=== PATIENT | male | born 1995 | race American Indian/Alaskan Native ===

== ENCOUNTER 2016-12-31 23:14 | Emergency (ER) | payer OTHER ==
[2016-12-31 23:36] VITALS: BP 120/79
[2016-12-31 23:55] LABS: Basophils % (Auto) 0.5 % (0.0-1.8); Eosinophils % (Auto) 5.2 % (0.0-4.3); Hematocrit 44.9 % (35.5-45.6); Hemoglobin 14.7 gm/dl (11.8-15.2); Mean Corpuscular HGB Conc 33 % (32-34); Mean Corpuscular Hemoglobin 29 pg (28-32); Mean Corpuscular Volume 89 fl (84-94); Platelet Count 224 K/mm3 (140-440); Red Blood Count 5.02 M/mm3 (3.65-5.03); Red Cell Distribution Width 12.7 % (13.2-15.2)
[2017-01-01 00:07] LABS: Anion Gap 14 mmol/L; BUN/Creatinine Ratio 12.72; Blood Urea Nitrogen 14 mg/dL (9-20); Calcium 9.3 mg/dL (8.4-10.2); Carbon Dioxide 29 mmol/L (22-30); Chloride 99.7 mmol/L (98-107); Glucose 117 mg/dL (75-100); Potassium 3.8 mmol/L (3.6-5.0); Sodium 139 mmol/L (137-145)
[2017-01-01 00:45] LABS: Bilirubin,Urine NEG (Negative); Blood,Urine NEG (Negative); Ketones,Urine NEG (Negative); Leukocyte Esterase,Urine NEG (Negative); Mucus,Urine FEW /HPF; Nitrite,Urine NEG (Negative); Protein,Urine <15 mg/dL mg/dL (Negative)
--- NOTE | 2017-01-04 13:02 | ED Elopement Review ---
ED Pt Elopement review - Results review Lab results: Laboratory Tests 12/31/16 12/31/16 01/01/17 23:39 23:39 00:24 WBC 8.0 RBC 5.02 Hgb 14.7 Hct 44.9 MCV 89 MCH 29 MCHC 33 RDW 12.7 L Plt Count 224 Lymph % (Auto) 36.6 H [place] % (Auto) 6.4 Eos % (Auto) 5.2 H Baso % (Auto) 0.5 Lymph # 2.9 [place] # 0.5 Eos # 0.4 Baso # 0.0 Seg Neutrophils % 51.3 Seg Neutrophils # 4.1 Sodium 139 Potassium 3.8 Chloride 99.7 Carbon Dioxide 29 BUN 14 Creatinine 1.1 Estimated GFR > 60 BUN/Creatinine Ratio 12.72 Glucose 117 H Calcium 9.3 Urine Color Yellow Urine Turbidity Clear Urine pH 6.0 Ur Specific [place] 1.027 Urine Protein <15 mg/dl Urine Glucose (UA) Neg Urine Ketones Neg Urine Blood Neg Urine Nitrite Neg Urine Bilirubin Neg Urine Urobilinogen 4.0 Ur Leukocyte Esterase Neg Urine WBC (Auto) 1.0 Urine RBC (Auto) 2.0 U Epithel Cells (Auto) < 1.0 Urine Mucus Few - Call Back decision Pt Call Back Decision: No action required
== END 2017-01-01 11:00 | disposition left against medical advice (07) ==
LOC: ED 23:14
DX: R42 Dizziness and giddiness (principal); M79.1 Myalgia; V49.9XXA Car occupant (driver) (passenger) injured in unspecified traffic accident, initial encounter; Y93.89 Activity, other specified; Y99.9 Unspecified external cause status; Y92.410 Unspecified street and highway as the place of occurrence of the external cause; Z53.21 Procedure and treatment not carried out due to patient leaving prior to being seen by health care provider
CPT/HCPCS: 36415; 80048; 81001; 85025

== ENCOUNTER 2017-05-19 09:32 | Inpatient (IN) | payer OTHER ==
[2017-05-19 10:21] LABS: Basophils % (Auto) 0.4 % (0.0-1.8); Eosinophils % (Auto) 0.2 % (0.0-4.3); Hematocrit 44.8 % (35.5-45.6); Mean Corpuscular HGB Conc 34 % (32-34); Mean Corpuscular Hemoglobin 29 pg (28-32); Mean Corpuscular Volume 88 fl (84-94); Platelet Count 181 K/mm3 (140-440); Red Cell Distribution Width 12.9 % (13.2-15.2); White Blood Count 11.7 K/mm3 (4.5-11.0)
[2017-05-19 10:38] LABS: Anion Gap 17 mmol/L; BUN/Creatinine Ratio 8; Blood Urea Nitrogen 9 mg/dL (9-20); Calcium 9.4 mg/dL (8.4-10.2); Carbon Dioxide 26 mmol/L (22-30); Chloride 98.3 mmol/L (98-107); Glucose 143 mg/dL (75-100); Potassium 3.7 mmol/L (3.6-5.0); Sodium 138 mmol/L (137-145)
[2017-05-19] MEDS ORDERED: NACL 0.9% 500 ML 500 ML IV ONE (14:45)
--- NOTE | 2017-05-19 15:43 | XRay Report ---
AP CHEST :05/19/17 09:32:00 CLINICAL: Sepsis. COMPARISON:06/02/12 FINDINGS: Normal heart and pulmonary vasculature. The lungs are normally expanded and clear. The bones and soft tissues are normal. IMPRESSION: Normal chest.
[2017-05-19 16:16] LABS: Alanine Aminotransferase 24 units/L (7-56); Albumin 4.5 g/dL (3.9-5); Albumin/Globulin Ratio 1.6 %; Alkaline Phosphatase 68 units/L (35-129); Anion Gap 17 mmol/L; BUN/Creatinine Ratio 8; Blood Urea Nitrogen 8 mg/dL (9-20); Calcium 9.6 mg/dL (8.4-10.2); Carbon Dioxide 28 mmol/L (22-30); Chloride 96.6 mmol/L (98-107); Glucose 85 mg/dL (75-100); Potassium 3.7 mmol/L (3.6-5.0); Sodium 138 mmol/L (137-145); Total Protein 7.4 g/dL (6.3-8.2)
[2017-05-19] MEDS ORDERED: MORPHINE IV ONE (16:22)
[2017-05-19] MEDS ORDERED: ZOFRAN IV ONE (16:22)
[2017-05-19] MEDS ORDERED: FIORICET PO ONE (16:22)
[2017-05-19] MEDS ORDERED: ROCEPHIN/NS 1 GM/50 ML 1 GM/50 ML BAG IV ONE (16:29)
[2017-05-19] MEDS ORDERED: ZITHROMAX PO ONE (16:29)
--- NOTE | 2017-05-19 16:35 | Emergency Department Report ---
HPI - General Chief Complaint: Syncope Time Seen by Provider: 05/19/17 16:08 - [facility] HPI: Room 7 The patient is a 21-year-old male presenting with a chief complaint of syncope. The patient states he awakened 2 days ago and noticed a "red dots" at the bottom of his left foot. The patient states were swollen and painful requiring him to take ibuprofen for the pain. Yesterday while at work he was standing and began feeling lightheaded and dizzy and then passed out for several seconds. Coworkers did not report convulsions. Patient states eventually went home and slept all day. Today the patient noticed a "red dot" on his right palm. Patient denied preceding chest pain or shortness of breath. Patient does admit to nausea but denies vomiting. Patient states he is unable to walk secondary to the pain in his feet, ankles and wrists. When family was asked to leave the room I asked the patient and coughif he has had any penile discharge and dysuria or hematuria. Patient denies any of these symptoms. The patient states approximately one week ago he had some erectile dysfunction but it was transient. The patient states he has developed a headache since he's been here in the ED Location: [See above] Duration: [See above] Quality: Syncope Severity: [See above] Modifying factors: [see above] Context: [see above] Mode of transportation: [not driving] ED Past Medical Hx - Past Medical History Additional medical history: polycythemia vera - Surgical History Additional Surgical History: Left anterior cruciate ligament repair - Social History Smoking Status: Never Smoker Substance Use Type: None (denies illicit drug use), Alcohol (occasional) - Medications Home Medications: Home Medications Medication Instructions Recorded Confirmed Last Taken Type No Known Home Medications [No 05/19/17 05/19/17 Unknown History Reported Home Medications] ED Review of Systems ROS: Stated complaint: SYNCOPE BODY SWELLING POST FALL Other details as noted in HPI Constitutional: fever Respiratory: denies: shortness of breath Cardiovascular: denies: chest pain Endocrine: no symptoms reported Gastrointestinal: nausea. denies: vomiting Genitourinary: denies: dysuria, hematuria, discharge Musculoskeletal: arthralgia, myalgia Skin: lesions Neurological: headache, other (syncope) Hematological/Lymphatic: other (history of polycythemia vera) Physical Exam - Physical Exam Vital Signs: Vital Signs 05/19/17 05/19/1705/19/17 09:52 12:43 14:44 Temperature 98.6 F 99.8 F H 100.4 F H Pulse Rate 99 H 100 H Respiratory 18 16 Rate Blood Pressure 144/83 Blood Pressure 143/79 [Left] O2 Sat by Pulse 100 100 Oximetry Physical Exam: GENERAL: The patient is well-developed well-nourished male lying on stretcher not appearing to be in acute distress. [] HEENT: Normocephalic. Atraumatic. Extraocular motions are intact. Patient has moist mucous membranes. NECK: Supple. No meningitic signs are noted. Trachea midline CHEST/LUNGS: There is no respiratory distress noted. HEART/CARDIOVASCULAR: Regular. There is no tachycardia. ABDOMEN: Abdomen is soft, nontender. Patient has normal bowel sounds. There is no abdominal distention. SKIN: There is a red pustular lesion to the sole of the left foot. There is a similar lesion to the palm of the right hand. There is no edema. There is no diaphoresis. NEURO: The patient is awake, alert, and oriented. The patient is cooperative. The patient has no focal neurologic deficits. The patient has normal speech. Cranial nerves II through XII grossly intact, no drift MUSCULOSKELETAL: There is no evidence of acute injury. ED Course Vital Signs 05/19/17 05/19/17 05/19/17 09:52 12:43 14:44 Temperature 98.6 F 99.8 F H 100.4 F H Pulse Rate 99 H 100 H Respiratory 18 16 Rate Blood Pressure 144/83 Blood Pressure 143/79 [Left] O2 Sat by Pulse 100 100 Oximetry ED Medical Decision Making - Lab Data Result diagrams: 05/19/17 10:10 05/19/17 14:58 Laboratory Tests 05/19/17 05/19/17 05/19/17 10:07 10:10 10:10 WBC 11.7 H RBC 5.10 H Hgb 15.0 Hct 44.8 MCV 88 MCH 29 MCHC 34 RDW 12.9 L Plt Count 181 Lymph % (Auto) 13.5 [place] % (Auto) 9.5 H Eos % (Auto) 0.2 Baso % (Auto) 0.4 Lymph # 1.6 [place] # 1.1 H Eos # 0.0 Baso # 0.0 Seg Neutrophils % 76.4 H Seg Neutrophils # 8.9 H PT INR APTT VBG pH Sodium 138 Potassium 3.7 Chloride 98.3 Carbon Dioxide 26 Anion Gap 17 BUN 9 Creatinine 1.1 Estimated GFR > 60 BUN/Creatinine Ratio 8 Glucose 143 H POC Glucose 140 H Lactic Acid Calcium 9.4 Total Bilirubin AST ALT Alkaline Phosphatase Total Creatine Kinase CK-MB (CK-2) CK-MB (CK-2) Rel Index Troponin T Total Protein Albumin Albumin/Globulin Ratio Urine Color Urine Turbidity Urine pH Ur Specific [place] Urine Protein Urine Glucose (UA) Urine Ketones Urine Blood Urine Nitrite Urine Bilirubin Urine Urobilinogen Ur Leukocyte Esterase Urine WBC (Auto) Urine RBC (Auto) Urine Mucus 05/19/17 05/19/17 05/19/17 14:58 14:58 14:58 WBC RBC Hgb Hct MCV MCH MCHC RDW Plt Count Lymph % (Auto) [place] % (Auto) Eos % (Auto) Baso % (Auto) Lymph # [place] # Eos # Baso # Seg Neutrophils % Seg Neutrophils # PT INR APTT VBG pH 7.480 H Sodium 138 Potassium 3.7 Chloride 96.6 L Carbon Dioxide 28 Anion Gap 17 BUN 8 L Creatinine 1.0 Estimated GFR > 60 BUN/Creatinine Ratio 8 Glucose 85 POC Glucose Lactic Acid 1.60 Calcium 9.6 Total Bilirubin 0.60 AST 18 ALT 24 Alkaline Phosphatase 68 Total Creatine Kinase CK-MB (CK-2) CK-MB (CK-2) Rel Index Troponin T Total Protein 7.4 Albumin 4.5 Albumin/Globulin Ratio 1.6 Urine Color Urine Turbidity Urine pH Ur Specific [place] Urine Protein Urine Glucose (UA) Urine Ketones Urine Blood Urine Nitrite Urine Bilirubin Urine Urobilinogen Ur Leukocyte Esterase Urine WBC (Auto) Urine RBC (Auto) Urine Mucus 05/19/17 05/19/17 05/19/17 16:20 16:40 16:40 WBC RBC Hgb Hct MCV MCH MCHC RDW Plt Count Lymph % (Auto) [place] % (Auto) Eos % (Auto) Baso % (Auto) Lymph # [place] # Eos # Baso # Seg Neutrophils % Seg Neutrophils # PT 13.3 INR 0.96 APTT 20.0 L VBG pH Sodium Potassium Chloride Carbon Dioxide Anion Gap BUN Creatinine Estimated GFR BUN/Creatinine Ratio Glucose POC Glucose Lactic Acid 0.80 Calcium Total Bilirubin AST ALT Alkaline Phosphatase Total Creatine Kinase 177 H CK-MB (CK-2) < 1.0 CK-MB (CK-2) Rel Index 0.5 Troponin T < 0.010 Total Protein Albumin Albumin/Globulin Ratio Urine Color Urine Turbidity Urine pH Ur Specific [place] Urine Protein Urine Glucose (UA) Urine Ketones Urine Blood Urine Nitrite Urine Bilirubin Urine Urobilinogen Ur Leukocyte Esterase Urine WBC (Auto) Urine RBC (Auto) Urine Mucus 05/19/17 18:00 WBC RBC Hgb Hct MCV MCH MCHC RDW Plt Count Lymph % (Auto) [place] % (Auto) Eos % (Auto) Baso % (Auto) Lymph # [place] # Eos # Baso # Seg Neutrophils % Seg Neutrophils # PT INR APTT VBG pH Sodium Potassium Chloride Carbon Dioxide Anion Gap BUN Creatinine Estimated GFR BUN/Creatinine Ratio Glucose POC Glucose Lactic Acid Calcium Total Bilirubin AST ALT Alkaline Phosphatase Total Creatine Kinase CK-MB (CK-2) CK-MB (CK-2) Rel Index Troponin T Total Protein Albumin Albumin/Globulin Ratio Urine Color Yellow Urine Turbidity Clear Urine pH 6.0 Ur Specific [place] 1.023 Urine Protein 30 mg/dl Urine Glucose (UA) Neg Urine Ketones 20 Urine Blood Neg Urine Nitrite Neg Urine Bilirubin Neg Urine Urobilinogen 4.0 Ur Leukocyte Esterase Neg Urine WBC (Auto) 1.0 Urine RBC (Auto) 2.0 Urine Mucus 1+ - EKG Data -: EKG Interpreted by Me EKG shows normal: sinus rhythm Rate: normal - EKG Data When compared to previous EKG there are: no significant change Interpretation: unchanged when compared t (02/24/2015) - Radiology Data Radiology results: report reviewed (CT head, CT chest), image reviewed (chest x- ray, CT head, CT chest) interpreted by me: Chest x-ray-no focal infiltrates, no pneumothorax FINAL REPORT PROCEDURE: CT ANGIO CHEST TECHNIQUE: Computerized tomographic angiography of the chest was performed after the IV injection of iodinated nonionic contrast including image processing. The image data was postprocessed using 2-dimensional multiplanar reformatted (MPR) and 3-dimensional (MIP and/or volume rendered) techniques. HISTORY: syncope COMPARISON: No prior studies are available for comparison. FINDINGS: Lungs are clear. Heart is top normal limits in size. Thoracic aorta is normal in size without evidence of dissection. No mediastinal lymphadenopathy is seen. No pulmonary embolus is seen. No abnormalities are seen in the upper abdomen. IMPRESSION: No abnormalities are seen. Transcribed By: AIDAN Dictated By: ELLA DE LEON JR, MD Electronically Authenticated By: ELLA DE LEON JR, MD Signed Date/Time: 05/19/171417 DD/ 17 TD/TT: 05/19/171417 CT head (read by radiologist)-no abnormalities are seen - Differential Diagnosis disseminated gonorrhea, PE, endocarditis, ACS, dysrhythmia Critical care attestation.: If time is entered above; I have spent that time in minutes in the direct care of this critically ill patient, excluding procedure time. ED Disposition Clinical Impression: Syncope Disposition: [id number] OP ADMIT IP TO THIS HOSP Is pt being admited?: Yes Does the pt Need Aspirin: Yes Condition: Fair Instructions: Syncope (ED) Referrals: PRIMARY CARE, [Primary Care Provider] - 3-5 Days Time of Disposition: 19:29 (hospitalist paged)
[2017-05-19] MEDS ORDERED: NACL ONE (16:40)
[2017-05-19 16:43] LABS: INR 0.96 (0.87-1.13)
[2017-05-19 17:28] LABS: Creatine Kinase 177 units/L (55-170)
[2017-05-19] MEDS ORDERED: cefTRIAXone 1 GM in NACL 0.9% 20 ML IV ONE (17:30)
[2017-05-19 17:38] LABS: Creatine Kinase MB < 1.0 ng/mL (0.0-4.0)
--- NOTE | 2017-05-19 18:22 | Cat Scan Report ---
FINAL REPORT PROCEDURE: CT ANGIO CHEST TECHNIQUE: Computerized tomographic angiography of the chest was performed after the IV injection of iodinated nonionic contrast including image processing. The image data was postprocessed using 2-dimensional multiplanar reformatted (MPR) and 3-dimensional (MIP and/or volume rendered) techniques. HISTORY: syncope COMPARISON: No prior studies are available for comparison. FINDINGS: Lungs are clear. Heart is top normal limits in size. Thoracic aorta is normal in size without evidence of dissection. No mediastinal lymphadenopathy is seen. No pulmonary embolus is seen. No abnormalities are seen in the upper abdomen. IMPRESSION: No abnormalities are seen.
[2017-05-19 18:39] LABS: Bilirubin,Urine NEG (Negative); Blood,Urine NEG (Negative); Ketones,Urine 20 mg/dL (Negative); Leukocyte Esterase,Urine NEG (Negative); Mucus,Urine 1+ /HPF; Nitrite,Urine NEG (Negative)
--- NOTE | 2017-05-19 19:26 | Cat Scan Report ---
FINAL REPORT PROCEDURE: CT HEAD/BRAIN WO CON TECHNIQUE: Computerized tomography of the head was performed without contrast material. HISTORY: syncope COMPARISON: No prior studies are available for comparison. FINDINGS: The visualized portions of the paranasal sinuses are clear. Mastoid air cells are clear. There is no calvarial fracture. There is no hydrocephalus. No acute intracranial hemorrhage or mass effect is seen. There is no evidence of acute CVA. IMPRESSION: No abnormalities are seen.
[2017-05-19] MEDS ORDERED: ZOFRAN IV PRN (22:40)
[2017-05-19] MEDS ORDERED: MILK OF MAGNESIA PO PRN (22:40)
[2017-05-19] MEDS ORDERED: DULCOLAX PR PRN (22:40)
[2017-05-19] MEDS ORDERED: TYLENOL PO PRN (22:40)
--- NOTE | 2017-05-19 22:45 | History and Physical Report ---
History of Present Illness Date of examination: 05/19/17 Date of admission: 05/19/17 19:31 History of present illness: 21-year-old male with no medical problems comes emergency because yesterday he had a syncopal episode at work for a few seconds. Patient was standing up when this occurred. He also stated that Wednesday he noticed red dots on the bottom of his left foot, he has difficulty standing on them because they hurt so much. Today he noticed a red spot on the right palm. Denies chills, penile discharge or ulcers Review Of Systems: Constitutional: no weight loss Ears, eyes, nose, mouth and throat: no nasal congestion, no nasal discharge, no sinus pressure, blurry vision, diplopia Neck: No neck pain or rigidity. Cardiovascular: no chest pain, orthopnea, palpitations Respiratory: No shortness of breath, cough Gastrointestinal: no abdominal pain, hematochezia Genitourinary : no dysuria, frequency , hematuria Musculoskeletal: no muscle ache Integumentary: no rash, no pruritis Neurological: no parathesias, focal weakness Endocrine: no cold or heat intolerance, no polyuria or polydipsia Hematologic/Lymphatic: no easy bruising, no easy bleeding, no gland swelling Allergic/Immunologic: no urticaria, no angioedema. PAST MEDICAL HISTORY:none PAST SURGICAL HISTORY:none FAMILY HISTORY:Hypertension SOCIAL HISTORY: Denies alcohol, tobacco, drugs Medications and Allergies Allergies Allergy/AdvReac Type Severity Reaction Status Date / Time No Known Allergies Allergy Verified 06/28/13 03:19 Home Medications Medication Instructions Recorded Confirmed Last Taken Type Clindamycin [Clindamycin CAP] 300 mg PO Q6H #28 capsule 05/21/17 Unknown Rx Ketorolac [Toradol] 10 mg PO Q6H PRN #20 tablet 05/21/17 Unknown Rx Exam - Physical Exam Narrative exam: Gen. appearance: Patient lying in bed in no acute distress HEENT: Normocephalic/atraumatic, pupils equal round reactive to light, extra alkaline movement intact, no scleral icterus, no JVD or thyromegaly or nodule, neck is supple, mucous membrane moist, no erythema or exudate Heart: S1-S2, regular rate and rhythm Lungs: Clear to auscultation bilateral breathing comfortable Abdomen: Positive bowel sounds, nontender, nondistended, no organomegaly Extremities: erythematous lesion in her right palm, left foot, No edema, cyanosis, clubbing Neuro:: Oriented 3 , cranial nerves II-12 intact, speech, motor intact Skin: No rash, nodules, warm dry - Constitutional Vitals: Temp Pulse Resp BP Pulse Ox 98.8 F 102 H 18 140/75 100 05/19/17 21:00 05/19/17 21:00 05/19/17 21:49 05/19/17 21:00 05/19/17 21:00 Results - Labs CBC & Chem 7: 05/20/17 05:50 05/20/17 05:50 Labs: Abnormal lab results 05/19/17 05/19/17 05/19/17 Range/Units 10:07 10:10 10:10 WBC 11.7 H (4.5-11.0) K/mm3 RBC 5.10 H (3.65-5.03) M/mm3 RDW 12.9 L (13.2-15.2) % [place] % (Auto) 9.5 H (0.0-7.3) % [place] # 1.1 H (0.0-0.8) K/mm3 Seg Neutrophils % 76.4 H (40.0-70.0) % Seg Neutrophils # 8.9 H (1.8-7.7) K/mm3 APTT (24.2-36.6) Sec. VBG pH (7.320-7.420) Chloride (98-107) mmol/L BUN (9-20) mg/dL Glucose 143 H (75-100) mg/dL POC Glucose 140 H (70-105) Total Creatine Kinase (55-170) units/L 05/19/17 05/19/17 05/19/17 Range/Units 14:58 14:58 16:20 WBC (4.5-11.0) K/mm3 RBC (3.65-5.03) M/mm3 RDW (13.2-15.2) % [place] % (Auto) (0.0-7.3) % [place] # (0.0-0.8) K/mm3 Seg Neutrophils % (40.0-70.0) % Seg Neutrophils # (1.8-7.7) K/mm3 APTT 20.0 L (24.2-36.6) Sec. VBG pH 7.480 H (7.320-7.420) Chloride 96.6 L (98-107) mmol/L BUN 8 L (9-20) mg/dL Glucose (75-100) mg/dL POC Glucose (70-105) Total Creatine Kinase (55-170) units/L 05/19/17 Range/Units 16:40 WBC (4.5-11.0) K/mm3 RBC (3.65-5.03) M/mm3 RDW (13.2-15.2) % [place] % (Auto) (0.0-7.3) % [place] # (0.0-0.8) K/mm3 Seg Neutrophils % (40.0-70.0) % Seg Neutrophils # (1.8-7.7) K/mm3 APTT (24.2-36.6) Sec. VBG pH (7.320-7.420) Chloride (98-107) mmol/L BUN (9-20) mg/dL Glucose (75-100) mg/dL POC Glucose (70-105) Total Creatine Kinase 177 H (55-170) units/L - Imaging and Cardiology EKG: image reviewed Chest x-ray: report reviewed CT scan - chest: report reviewed CT Scan - head: report reviewed Assessment and Plan Assessment SIRS Syncope Plan Admit to medicine Check cardiac enzymes, orthostatics, echo, consult cardiology Start IV Rocephin, DVT prophylaxis
[2017-05-20] MEDS: MORPHINE IV PRN ×2 (00:20→08:35)
[2017-05-20 00:23] LABS: Creatine Kinase 164 units/L (55-170); Creatine Kinase MB < 1.0 ng/mL (0.0-4.0)
[2017-05-20 06:33] LABS: Basophils % (Auto) 0.2 % (0.0-1.8); Eosinophils % (Auto) 0.5 % (0.0-4.3); Hemoglobin 14.3 gm/dl (11.8-15.2); Mean Corpuscular HGB Conc 34 % (32-34); Mean Corpuscular Hemoglobin 30 pg (28-32); Mean Corpuscular Volume 88 fl (84-94); Platelet Count 166 K/mm3 (140-440); Red Cell Distribution Width 12.8 % (13.2-15.2); White Blood Count 9.8 K/mm3 (4.5-11.0)
[2017-05-20 06:55] LABS: BUN/Creatinine Ratio 8; Blood Urea Nitrogen 8 mg/dL (9-20); Calcium 8.8 mg/dL (8.4-10.2); Carbon Dioxide 28 mmol/L (22-30); Creatine Kinase MB < 1.0 ng/mL (0.0-4.0); Glucose 111 mg/dL (75-100); Potassium 3.7 mmol/L (3.6-5.0); Sodium 139 mmol/L (137-145)
[2017-05-20 06:56] LABS: Anion Gap 16 mmol/L
[2017-05-20 06:59] LABS: Creatine Kinase 142 units/L (55-170)
--- NOTE | 2017-05-20 08:38 | Progress Note ---
Assessment and Plan Assessment and plan: --Syncope; vasovagal; autonomic imbalance No new episodes since admission, fall precautions --Syncope workup is in progress CT head negative CTA chest negative Chest x-ray normal Cardiology evaluated the patient, syncope noncardiac probably vasovagal --Left foot pain and swelling; x-ray negative for acute abnormalities Continue supportive care, ? foreign body Lt foot, consider X ray lt foot --SIRS; empiric antibiotics follow cultures Patient is afebrile, WBC within normal limits, continue current management --DVT prophylaxis; Lovenox Ambulate as tolerated Possible discharge in 1-2 days if stable History Interval history: Recent seen and examined Medical records reviewed Patient has multiple unrelated complaints and symptoms Extensive workup is negative Patient is afebrile, alert awake oriented 3 not in acute distress Complaints of left foot pain and swelling Hospitalist Physical - Constitutional Vitals: Temp Pulse Resp BP Pulse Ox 98.3 F 95 H 18 131/72 98 05/20/17 04:54 05/20/17 04:59 05/20/17 04:59 05/20/17 04:59 05/20/17 04:59 General appearance: Present: no acute distress, well-nourished - EENT Eyes: Present: PERRL, EOM intact - Neck Neck: Present: supple, normal ROM - Respiratory Respiratory effort: normal Respiratory: negative: rales, rhonchi, wheezing - Cardiovascular Rhythm: regular Heart Sounds: Present: S1 & S2 - Extremities Extremities: no ischemia, No edema Peripheral Pulses: within normal limits - Abdominal General gastrointestinal: soft, non-tender, non-distended - Integumentary Integumentary: Present: clear, warm - Psychiatric Psychiatric: appropriate mood/affect, cooperative - Neurologic Neurologic: CNII-XII intact, gait normal Results - Labs CBC & Chem 7: 05/20/17 05:50 05/20/17 05:50 Labs: Laboratory Last Values WBC 9.8 K/mm3 (4.5-11.0) 05/20/17 05:50 RBC 4.80 M/mm3 (3.65-5.03) 05/20/17 05:50 Hgb 14.3 gm/dl (11.8-15.2) 05/20/17 05:50 Hct 42.0 % (35.5-45.6) 05/20/17 05:50 MCV 88 fl (84-94) 05/20/17 05:50 MCH 30 pg (28-32) 05/20/17 05:50 MCHC 34 % (32-34) 05/20/17 05:50 RDW 12.8 % (13.2-15.2) L 05/20/17 05:50 Plt Count 166 K/mm3 (140-440) 05/20/17 05:50 Lymph % (Auto) 14.2 % (13.4-35.0) 05/20/17 05:50 [place] % (Auto) 13.5 % (0.0-7.3) H 05/20/17 05:50 Eos % (Auto) 0.5 % (0.0-4.3) 05/20/17 05:50 Baso % (Auto) 0.2 % (0.0-1.8) 05/20/17 05:50 Lymph # 1.4 K/mm3 (1.2-5.4) 05/20/17 05:50 [place] # 1.3 K/mm3 (0.0-0.8) H 05/20/17 05:50 Eos # 0.0 K/mm3 (0.0-0.4) 05/20/17 05:50 Baso # 0.0 K/mm3 (0.0-0.1) 05/20/17 05:50 Seg Neutrophils % 71.6 % (40.0-70.0) H 05/20/17 05:50 Seg Neutrophils # 7.0 K/mm3 (1.8-7.7) 05/20/17 05:50 PT 13.3 Sec. (12.2-14.9) 05/19/17 16:20 INR 0.96 (0.87-1.13) 05/19/17 16:20 APTT 20.0 Sec. (24.2-36.6) L 05/19/17 16:20 VBG pH 7.480 (7.320-7.420) H 05/19/17 14:58 Sodium 139 mmol/L (137-145) 05/20/17 05:50 Potassium 3.7 mmol/L (3.6-5.0) 05/20/17 05:50 Chloride 99.0 mmol/L (98-107) 05/20/17 05:50 Carbon Dioxide 28 mmol/L (22-30) 05/20/17 05:50 Anion Gap 16 mmol/L 05/20/17 05:50 BUN 8 mg/dL (9-20) L 05/20/17 05:50 Creatinine 1.0 mg/dL (0.8-1.5) 05/20/17 05:50 Estimated GFR > 60 ml/min 05/20/17 05:50 BUN/Creatinine Ratio 8 % 05/20/17 05:50 Glucose 111 mg/dL (75-100) H 05/20/17 05:50 POC Glucose 140 (70-105) H 05/19/17 10:07 Lactic Acid 0.80 mmol/L (0.7-2.0) 05/19/17 16:40 Calcium 8.8 mg/dL (8.4-10.2) 05/20/17 05:50 Total Bilirubin 0.60 mg/dL (0.1-1.2) 05/19/17 14:58 AST 18 units/L (5-40) 05/19/17 14:58 ALT 24 units/L (7-56) 05/19/17 14:58 Alkaline Phosphatase 68 units/L (35-129) 05/19/17 14:58 Total Creatine Kinase 142 units/L (55-170) 05/20/17 05:50 CK-MB (CK-2) < 1.0 ng/mL (0.0-4.0) 05/20/17 05:50 CK-MB (CK-2) Rel Index 0.7 (0-4) 05/20/17 05:50 Troponin T < 0.010 ng/mL (0.00-0.029) 05/20/17 05:50 Total Protein 7.4 g/dL (6.3-8.2) 05/19/17 14:58 Albumin 4.5 g/dL (3.9-5) 05/19/17 14:58 Albumin/Globulin Ratio 1.6 % 05/19/17 14:58 Urine Color Yellow (Yellow) 05/19/17 18:00 Urine Turbidity Clear (Clear) 05/19/17 18:00 Urine pH 6.0 (5.0-7.0) 05/19/17 18:00 Ur Specific [place] 1.023 (1.003-1.030) 05/19/17 18:00 Urine Protein 30 mg/dl mg/dL (Negative) 05/19/17 18:00 Urine Glucose (UA) Neg mg/dL (Negative) 05/19/17 18:00 Urine Ketones 20 mg/dL (Negative) 05/19/17 18:00 Urine Blood Neg (Negative) 05/19/17 18:00 Urine Nitrite Neg (Negative) 05/19/17 18:00 Urine Bilirubin Neg (Negative) 05/19/17 18:00 Urine Urobilinogen 4.0 mg/dL (<2.0) 05/19/17 18:00 Ur Leukocyte Esterase Neg (Negative) 05/19/17 18:00 Urine WBC (Auto) 1.0 /HPF (0.0-6.0) 05/19/17 18:00 Urine RBC (Auto) 2.0 /HPF (0.0-6.0) 05/19/17 18:00 Urine Mucus 1+ /HPF 05/19/17 18:00
[2017-05-20] MEDS: cefTRIAXone 1 GM in NACL 0.9% 20 ML IV SCH (09:05)
--- NOTE | 2017-05-20 09:56 | Consultation ---
History of Present Illness Consult date: 05/20/17 Consult reason: syncope History of present illness: 21 yo male experienced transient loc on wed of this week while standing. 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 previously healthy. felt warm,nauseated before briefly passsing out. did not sustain any injury. pt felt this happened because he hadnt eaten for awhile. no hx of dm or hypoglycemia. no cp palp or sob. tele reveals sinus rhythm and ecg nsr with no acute changes. came to ed yesterday because of pain in his feet. Past History Past Medical History: other (denies sig pmh) Past Surgical History: Other (denies sig past surg hx) Social history: denies: smoking, alcohol abuse Family history: hypertension Medications and Allergies Allergies Allergy/AdvReac Type Severity Reaction Status Date / Time No Known Allergies Allergy Verified 06/28/13 03:19 Home Medications Medication Instructions Recorded Confirmed Last Taken Type No Known Home Medications [No 05/19/17 05/19/17 Unknown History Reported Home Medications] Active Meds: Active Medications Acetaminophen (Tylenol) 650 mg PO Q4H PRN PRN Reason: Pain MILD(1-3)/Fever >100.5/DELACRUZ Last Admin: 05/20/17 08:36 Dose: 650 mg Bisacodyl (Dulcolax) 10 mg VA QDAY PRN PRN Reason: Constipation unrelieved by MOM Ceftriaxone Sodium 1 gm/ (Sodium Chloride) 20 mls @ 20 mls/10 min IV Q24HR YUMI Last Admin: 05/20/17 09:05 Dose: 20 mls/10 min Magnesium Hydroxide (Milk Of Magnesia) 30 ml PO Q4H PRN PRN Reason: Constipation Morphine Sulfate (Morphine) 2 mg IV Q4H PRN PRN Reason: Pain, Moderate (4-6) Last Admin: 05/20/17 08:35 Dose: 2 mg Ondansetron HCl (Zofran) 4 mg IV Q4H PRN PRN Reason: N/V unrelieved by Reglan Review of Systems Eyes: bilateral: blurred vision (denies) Ears, nose, mouth and throat: no epistaxis Cardiovascular: syncope, no chest pain, no palpitations Respiratory: no hemoptysis, no shortness of breath Gastrointestinal: nausea, no abdominal pain Genitourinary Male: no flank pain Musculoskeletal: no hot joints, no frequent falls Integumentary: other, no jaundice Neurological: no seizures Psychiatric: no anxiety Endocrine: no cold intolerance, no heat intolerance Hematologic/Lymphatic: no easy bruising, no easy bleeding Allergic/Immunologic: no urticaria Physical Examination Vital Signs Temp Pulse Resp BP Pulse Ox 98.6 F 99 H 18 144/83 100 05/19/17 09:52 05/19/17 09:52 05/19/17 09:52 05/19/17 09:52 05/19/17 09:52 General appearance: no acute distress HEENT: Positive: PERRL, EOMI Neck: Positive: neck supple, Carotid Upstroke (2+). Negative: JVD/HJR, Bruit Cardiac: Positive: Regular Rate. Negative: S3, S4, Audible Murmur Lungs: Positive: clear to auscultation Neuro: Positive: Grossly Intact Abdomen: Positive: Soft. Negative: Tender Skin: Positive: Clear Musculoskeletal: Normal Range of Motion Extremities: Present: Other (normal and sym upper/lwer ext pulses). Absent: edema Results 05/20/17 05:50 05/20/17 05:50 Cardiac Enzymes 05/19/17 05/19/17 05/19/17 Range/Units 14:58 16:40 23:12 AST 18 (5-40) units/L CK-MB (CK-2) < 1.0 < 1.0 (0.0-4.0) ng/mL 05/20/17 Range/Units 05:50 AST (5-40) units/L CK-MB (CK-2) < 1.0 (0.0-4.0) ng/mL Coagulation 05/19/17 Range/Units 16:20 PT 13.3 (12.2-14.9) Sec. INR 0.96 (0.87-1.13) APTT 20.0 L (24.2-36.6) Sec. CBC 05/19/17 05/20/17 Range/Units 10:10 05:50 WBC 11.7 H 9.8 (4.5-11.0) K/mm3 RBC 5.10 H 4.80 (3.65-5.03) M/mm3 Hgb 15.0 14.3 (11.8-15.2) gm/dl Hct 44.8 42.0 (35.5-45.6) % Plt Count 181 166 (140-440) K/mm3 Lymph # 1.6 1.4 (1.2-5.4) K/mm3 [place] # 1.1 H 1.3 H (0.0-0.8) K/mm3 Eos # 0.0 0.0 (0.0-0.4) K/mm3 Baso # 0.0 0.0 (0.0-0.1) K/mm3 Comprehensive Metabolic Panel 05/19/17 05/19/17 05/20/17 Range/Units 10:10 14:58 05:50 Sodium 138 138 139 (137-145) mmol/L Potassium 3.7 3.7 3.7 (3.6-5.0) mmol/L Chloride 98.3 96.6 L 99.0 (98-107) mmol/L Carbon Dioxide 26 28 28 (22-30) mmol/L BUN 9 8 L 8 L (9-20) mg/dL Creatinine 1.1 1.0 1.0 (0.8-1.5) mg/dL Glucose 143 H 85 111 H (75-100) mg/dL Calcium 9.4 9.6 8.8 (8.4-10.2) mg/dL AST 18 (5-40) units/L ALT 24 (7-56) units/L Alkaline Phosphatase 68 (35-129) units/L Total Protein 7.4 (6.3-8.2) g/dL Albumin 4.5 (3.9-5) g/dL - EKG Interpretation EKG: WNL Assessment and Plan syncopal spell appears to have been vasovagal trop neg ecg no acute changes continue tel monitoring echocardiogram per hosp service.
[2017-05-20] MEDS ORDERED: ROCEPHIN/NS 1 GM/50 ML 1 GM/50 ML BAG IV SCH (10:00)
--- NOTE | 2017-05-20 14:02 | XRay Report ---
LEFT ANKLE THREE VIEWS: 05/19/17 19:31:00 CLINICAL: Pain and swelling. FINDINGS: The ankle mortise is intact. No fracture or dislocation. Moderate soft tissue swelling , medial greater than lateral. No soft tissue air or foreign body. IMPRESSION: Nonspecific soft tissue swelling and otherwise normal.
[2017-05-20] MEDS: MOTRIN PO PRN (17:30)
--- NOTE | 2017-05-21 08:12 | Progress Note ---
Assessment and Plan syncopal spell appears to have been vasovagal trop neg ecg no acute changes cardiac status stable. pt states he does not want to have the echo Subjective Date of service: 05/21/17 Interval history: pt feels well. no complaints. wants to go home Objective Vital Signs Temp Pulse Resp BP Pulse Ox 05/21/17 05:07 98.3 F 85 20 130/83 99 05/21/17 04:00 85 05/21/17 00:17 97.5 F L 76 18 132/85 97 05/20/17 20:02 86 100 05/20/17 20:01 99.9 F H 85 20 137/76 100 05/20/17 20:00 82 05/20/17 17:33 98.3 F 111 H 18 141/88 97 05/20/17 13:04 98.9 F 93 H 18 132/75 98 05/20/17 12:09 90 05/20/17 08:44 96 - Physical Examination HEENT: Positive: PERRL, EOMI Neck: Positive: neck supple, Carotid Upstroke (2+). Negative: JVD/HJR, Bruit Cardiac: Positive: Reg Rate and Rhythm. Negative: S3, Audible Murmur Lungs: Positive: clear to auscultation Neuro: Positive: Grossly Intact Abdomen: Positive: Soft. Negative: Tender Skin: Positive: Clear Musculoskeletal: Normal Range of Motion Extremities: Present: Other (normal and sym upper/lwer ext pulses). Absent: edema - Imaging and Cardiology EKG: image reviewed
[2017-05-21 10:00] VITALS: BP 156/85
[2017-05-21] MEDS: cefTRIAXone 1 GM in NACL 0.9% 20 ML IV SCH (11:00)
[2017-05-21] MEDS: MOTRIN PO PRN (12:16)
--- NOTE | 2017-05-21 13:21 | Discharge Summary ---
Providers - Providers Date of Admission: 05/19/17 19:31 Date of discharge: 05/21/17 Attending physician: ROSALIA LIGHT 05/19/17 22:40 Consult to Physician [CONS] Routine Consulting Provider: JERRY GRAJEDA Reason For Exam: syncope Place consult to:: Dr. 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 Hospitalization Reason for admission: syncopal episode Condition: Fair Pertinent studies: CT head negative CTA chest negative Chest x-ray normal Cardiology evaluated Patient refused echocardiogram x-ray left foot ; negative for acute abnormalities Hospital course: 21-year-old -[place] male patient with no medical problems was admitted through emergency room with a syncopal episode at work for a few seconds, patient was standing up when this occurred and also had some red dots in the bottom of his left foot and complaints of difficulty bearing weight and walking, no history of trauma , no history of urogenital symptoms, or sexually transmitted diseases 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 Patient also requested crutches, to use as needed, which were prescribed Patient's BMI is 34.3/obesity;Advised diet modification, exercise as tolerated and weight reduction when medically stable Patient also had some red spots in the left foot and one spot on the right hand , no history of sexually transmitted diseases, Genitourinary complaints, advised supportive care, if no improvement, patient would follow primary care physician for further evaluation. Patient's cultures are negative to date Today, he is comfortable in bed, no new episodes of syncope, likely signs are stable Physical examination done by me prior to discharge did not show any new changes Patient advised, to see neurologist for further evaluation. Office 2 episodes of syncope in the past as outpatient Patient also advised; empiric antibiotics to treat possible cellulitis of the left foot, and advised to elevate the limb If no improvement of the swelling and pain, patient advised to see a marzipan maker to rule out rheumatological conditions causing the symptoms[no rheumatology service in the hospital] Also advised to see outpatient podiatry for further evaluation of his foot problems Patient and his mother at the bedside verbalized understanding Patient was advised to 3 days off work excuse, and check with primary care physician for further recommendations Patient has no PMD, strongly advised to find a primary care physician for all his medical needs Discharge diagnosis; --Syncope; vasovagal; autonomic imbalance --Left foot pain and swelling; x-ray negative for foreign body --SIRS; empiric antibiotics for 3 days --obesity, BMI 34.3; counseling done. Disposition: TO HOME OR SELFCARE Time spent for discharge: 33 min Core Measure Documentation - Palliative Care Palliative Care/ Comfort Measures: Not Applicable - Core Measures Any of the following diagnoses?: none Exam - Constitutional Vitals: Temp Pulse Resp BP Pulse Ox 98.8 F 97 H 18 156/85 98 05/21/17 08:04 05/21/17 08:04 05/21/17 08:04 05/21/17 08:04 05/21/17 08:04 General appearance: Present: no acute distress, well-nourished - EENT Eyes: Present: PERRL, EOM intact - Neck Neck: Present: supple, normal ROM - Respiratory Respiratory effort: normal Respiratory: bilateral: diminished, negative: rales, rhonchi, wheezing - Cardiovascular Rhythm: regular Heart Sounds: Present: S1 & S2 - Extremities Extremities: no ischemia, No edema - Abdominal General gastrointestinal: Present: soft, non-tender, non-distended, normal bowel sounds Male genitourinary: Present: deferred - Rectal Rectal Exam: deferred - Integumentary Integumentary: Present: clear, warm - Musculoskeletal Musculoskeletal: strength equal bilaterally, generalized weakness - Psychiatric Psychiatric: appropriate mood/affect, cooperative - Neurologic Neurologic: CNII-XII intact, moves all extremities Plan Activity: advance as tolerated, fall precautions Diet: regular Durable Medical Equipment Needed Upon Discharge: Crutches Additional Instructions: Patient advised to get outpatient MRI of the left foot and ankle. If no improvement, may need to see a private marzipan maker in 1 week. Advised 3 days work excuse from 05/22/17 until 05/24/17 and check with primary care physician for further recommendations. Advised to see primary care physician; for further evaluation of some red spots on the sole of the foot and palm of right hand. Patient verbalized understanding Follow up with: PRIMARY MD EARLE [Primary Care Provider] - 3-5 Days SACHIN AGUILAR MD [Staff Physician] - 7 Days MICHELLE BUENO DPM [Staff Physician] - 7 Days Forms: Work/School Release Form Prescriptions: Clindamycin [Clindamycin CAP] 300 mg PO Q6H #28 capsule RX: Ketorolac [Toradol] 10 mg PO Q6H PRN #20 tablet PRN Reason: Pain, Mild (1-3) Other Discharge Orders: Crutches (Amb) Location: Determined By Patient
[2017-05-21] MEDS ORDERED: TORADOL PO PRN (13:30)
[2017-05-21] MEDS ORDERED: LOVENOX SUB-Q SCH (22:00)
== END 2017-05-21 17:35 | disposition home or self-care (01) | DRG 74 ==
LOC: ED 09:32 → 4A 19:31
PROVIDERS: ADMIT Internal Medicine; ATTEND Internal Medicine
DX: G90.8 Other disorders of autonomic nervous system (principal); R65.10 Systemic inflammatory response syndrome (SIRS) of non-infectious origin without acute organ dysfunction; M79.672 Pain in left foot; E66.9 Obesity, unspecified; Z68.34 Body mass index [BMI] 34.0-34.9, adult; Z82.49 Family history of ischemic heart disease and other diseases of the circulatory system
CPT/HCPCS: 36415; 70450; 71010; 71275; 80048; 80053; 81001; 82140; 82550; 82553; 82805; 82962; 84484; 85025; 85610; 85730; 87040; 87086; 87591; 93005; 93010; 96361; 96374; 96375; J0696; J2270; J2405; J7040; Q9967

== ENCOUNTER 2017-10-11 22:02 | Emergency (ER) | payer SELFPAY ==
[2017-10-11 22:23] VITALS: BP 117/71
[2017-10-11 23:59] LABS: Basophils # (Auto) 0.1 K/mm3 (0.0-0.1); Eosinophils # (Auto) 0.3 K/mm3 (0.0-0.4); Eosinophils % (Auto) 4.7 % (0.0-4.3); Hematocrit 42.5 % (35.5-45.6); Hemoglobin 14.3 gm/dl (11.8-15.2); Lymphocytes # (Auto) 2.1 K/mm3 (1.2-5.4); Mean Corpuscular HGB Conc 34 % (32-34); Mean Corpuscular Hemoglobin 29 pg (28-32); Mean Corpuscular Volume 87 fl (84-94); Monocytes # (Auto) 0.3 K/mm3 (0.0-0.8); Monocytes % (Auto) 4.6 % (0.0-7.3); Platelet Count 254 K/mm3 (140-440); Red Blood Count 4.87 M/mm3 (3.65-5.03); Red Cell Distribution Width 12.9 % (13.2-15.2)
--- NOTE | 2017-10-12 00:02 | XRay Report ---
FINAL REPORT PROCEDURE: XR CHEST ROUTINE 2V TECHNIQUE: PA and lateral chest radiographs were obtained. CPT 58827 HISTORY: Shortness of breath chest pain COMPARISON: No prior studies are available for comparison. FINDINGS: Heart: Normal. Mediastinum/Vessels: Normal. Lungs/Pleural space: Mildly hypoventilated otherwise are clear.. Bony thorax: No acute osseous abnormality. Other: IMPRESSION: Lungs are mildly hypoventilated otherwise no abnormality is seen..
[2017-10-12 00:15] LABS: BUN/Creatinine Ratio 16; Blood Urea Nitrogen 18 mg/dL (9-20); Calcium 9.1 mg/dL (8.4-10.2); Hemolysis Index 8
[2017-10-12 04:25] LABS: Bilirubin,Urine NEG (Negative); Blood,Urine NEG (Negative); Color,Urine Yellow (Yellow); Mucus,Urine 1+ /HPF; Protein,Urine <15 mg/dL mg/dL (Negative); Urobilinogen,Urine < 2.0 mg/dL (<2.0)
== END 2017-10-11 23:22 | disposition left against medical advice (07) ==
LOC: ED 22:02
DX: R07.9 Chest pain, unspecified (principal); Z53.21 Procedure and treatment not carried out due to patient leaving prior to being seen by health care provider
CPT/HCPCS: 36415; 71046; 80048; 81001; 84484; 85025; 93005; 93010